=== PATIENT | male | born 1995 | race Two or more races ===

== ENCOUNTER 2019-05-17 22:54 | Emergency (ER) | payer MEDICAID, OTHER ==
[~2019-05-17] VITALS: Ht 172.7 cm; Wt 68.0 kg
[2019-05-17] MEDS ORDERED: IBUPROFEN 600MG TABLET PO ONE (23:30)
[2019-05-18] MEDS ORDERED: TRAMADOL 50MG TABLET PO ONE (00:15)
[2019-05-18 00:46] VITALS: BP 122/78
== END 2019-05-18 00:46 | disposition home or self-care (01) ==
LOC: ER 22:54
DX: S09.8XXA Other specified injuries of head, initial encounter (principal); M54.2 Cervicalgia; R07.89 Other chest pain; M25.511 Pain in right shoulder; M54.6 Pain in thoracic spine; R03.0 Elevated blood-pressure reading, without diagnosis of hypertension; V73.6XXA Passenger on bus injured in collision with car, pick-up truck or van in traffic accident, initial encounter; Y93.89 Activity, other specified; Y92.410 Unspecified street and highway as the place of occurrence of the external cause
CPT/HCPCS: 29105; 71045; 72070; 73030; 99284

== ENCOUNTER 2019-09-01 07:02 | Emergency (ER) | payer MEDICAID ==
[~2019-09-01] VITALS: Ht 177.8 cm; Wt 84.0 kg
[2019-09-01] MEDS ORDERED: ONDANSETRON HCL 4MG/2ML INJ IV STA (07:37)
[2019-09-01] MEDS ORDERED: MORPHINE SULFATE 4 MG/ML CPJ (NOT FOR IM USE) IV STA (07:37)
[2019-09-01] MEDS ORDERED: AMPICILLIN SOD/SULBACTAM NA 3 G in SODIUM CHLORIDE 0.9% 100 ML IV SCH (09:30)
[2019-09-01 12:24] VITALS: BP 138/75
== END 2019-09-01 12:31 | disposition home or self-care (01) ==
LOC: ER 07:11
DX: S61.411A Laceration without foreign body of right hand, initial encounter (principal); S00.83XA Contusion of other part of head, initial encounter; S60.512A Abrasion of left hand, initial encounter; F12.10 Cannabis abuse, uncomplicated; F17.200 Nicotine dependence, unspecified, uncomplicated; Y04.0XXA Assault by unarmed brawl or fight, initial encounter; Y93.01 Activity, walking, marching and hiking; Y92.89 Other specified places as the place of occurrence of the external cause; Y99.8 Other external cause status
CPT/HCPCS: 29125; 70450; 70486; 71045; 72125; 73130; 96374; 96375; 99284; J0295; J2270; J2405; J7050

== ENCOUNTER 2020-07-25 04:26 | Emergency (ER) | payer MEDICAID, OTHER ==
[~2020-07-25] VITALS: Ht 177.8 cm; Wt 88.0 kg
[2020-07-25 04:49] VITALS: BP 140/104
== END 2020-07-25 06:04 | disposition left against medical advice (07) ==
LOC: ER 04:26
DX: Z53.21 Procedure and treatment not carried out due to patient leaving prior to being seen by health care provider (principal)

== ENCOUNTER 2022-10-30 23:39 | Emergency (ER) | payer MEDICAID, OTHER ==
[~2022-10-30] VITALS: Ht 177.8 cm; Wt 90.2 kg
[2022-10-31 00:18] VITALS: BP 113/86
[2022-10-31] MEDS ORDERED: IBUPROFEN 600MG TABLET PO STA (02:40)
[2022-10-31] MEDS ORDERED: NAPR-681 PO (03:50)
[2022-10-31] MEDS ORDERED: D-ME473S50 PO (03:50)
[2022-10-31] MEDS ORDERED: DOXY-456 MT (03:50)
== END 2022-10-31 04:32 | disposition home or self-care (01) ==
LOC: ER 23:39
DX: U07.1 COVID-19 (principal); J34.0 Abscess, furuncle and carbuncle of nose
CPT/HCPCS: 87426; 87804; 99283; C9803

== ENCOUNTER 2024-06-21 08:03 | Emergency (ER) | payer OTHER ==
[~2024-06-21] VITALS: Ht 180.3 cm; Wt 90.7 kg
[~2024-06-21 08:03] MED LIST: D-ME473S50 PO; DOXY100C74 MT; NAPR-681 PO
[2024-06-21 08:08] VITALS: O2SAT 97
[2024-06-21 09:02] LABS: BG BASE EXCESS -0.2 mmol/L (-2.0-3.0); BG CARBOXYHEMOGLOBIN 0.7 % (0.5-1.5); BG DEOXYHEMOGLOBIN 3.6 % (0.0-5.0); BG FRACTION INSPIRED OXYGEN 21; BG HCO3 ACT 24.1 mmol/L (21.0-28.0); BG METHEMOGLOBIN 0.2 % (0.5-1.5); BG OXYGEN SATURATION 96.4 % (94.0-98.0); BG OXYHEMOGLOBIN 95.5 % (94.0-98.0); BG PCO2 38.7 mmHg (35.0-48.0); BG PH 7.413 (7.350-7.450); BG PO2 82.4 mmHg (83.0-108.0); BG SAMPLE SITE RIGHT RADIAL; BG TOTAL HEMOGLOBIN 17.4 g/dL (13.5-17.5); BG VENT MODE ROOM AIR
[2024-06-21 09:46] VITALS: BP 131/87; PULSE 77; RESP 15; TEMP 36.78072; O2SAT 98
== END 2024-06-21 09:47 | disposition home or self-care (01) ==
LOC: ER 08:16
DX: R06.02 Shortness of breath (principal); F12.10 Cannabis abuse, uncomplicated; Z77.22 Contact with and (suspected) exposure to environmental tobacco smoke (acute) (chronic); X08.8XXA Exposure to other specified smoke, fire and flames, initial encounter
CPT/HCPCS: 36600; 71045; 82375; 82805; 93005; 99285